=== PATIENT | female | born 1960 | race Caucasian/White ===

== ENCOUNTER 2016-10-03 00:41 | Emergency (ER) | payer MEDICARE, MEDICAID ==
--- NOTE | 2016-10-03 19:08 | ER ---
ADMIT: 10/03/2016 RM/LOC: ER [facility] MR#: [id number] [address] [facility] [address] [place], [place] [address] LORI CRUZ [address] [facility] [address] [place] [address] Emergency Room Report SEX: F AGE: 56 : 1960 DATE: 10/03/2016 SUBJECTIVE: The patient is a 56-year-old female with a past medical history of bipolar, COPD, anxiety, came to the ER with chief complaint of left hip pain for the last 2 months. The patient states over the last two months, she fell twice and she had chronic left hip pain for which she had been refilled multiple times pain medications, and she states it was ground level fall and she says for the last two months, she has been limping on the left lower extremity. The patient states that the pain is still as before, but she did not take any pain medications, that is the reason she came to the ER. The patient denies any new weakness or numbness. The patient denies any new trauma. PHYSICAL EXAMINATION: GENERAL: The patient was in pczf-vd-benjzhne distress, the patient was afebrile with normal vitals. HEAD AND NECK: Noncontributory. CHEST: Clear, normal heart sounds. ABDOMEN: Soft. NEURO: Normal neuro and sensory motor exam. The patient's left hip range of motion actively was moderately distressed because of the pain. Still the patient could do the flexion and inversion/eversion of the left hip. CT scan of the pelvic left hip showed left acetabular fracture, with possible multiple floating particles in the left hip joint. The pain was moderately controlled. The patient was discharged to home. Matthew Acosta's , and advised to follow up this morning with the orthopedic clinic, the patient agreed to follow up with the orthopedic clinic today. The patient was advised to use the cane or per her discretion, crutches. Jan Herring MD/ douglas JOB #: [id number] CC: Jan Herring MD, Attending Physician Stone Martínez MD, Family Physician
[2016-11-28] MEDS ORDERED: ATIVAN-DPS1 MG PO (10:27)
[2016-11-28] MEDS ORDERED: LAMICTAL200 MG PO (10:27)
[2016-11-28] MEDS ORDERED: TOPROL XL50 MG PO (10:28)
[2016-11-28] MEDS ORDERED: ASA325 MG PO (10:28)
[2016-11-28] MEDS ORDERED: PROTONIX40 MG PO (10:28)
[2016-11-28] MEDS ORDERED: LEXAPRO DPS20 MG PO (10:29)
[2016-11-28] MEDS ORDERED: COLACE-DPS100 MG PO (10:29)
[2016-11-28] MEDS ORDERED: FEOSOL-DPS325 MG PO (10:29)
[2016-11-28] MEDS ORDERED: MIRALAX PACKET17 GM PO (10:29)
[2016-11-28] MEDS ORDERED: MOBIC15 MG PO (10:29)
[2016-11-28] MEDS ORDERED: DESYREL-DPS50 MG PO (10:29)
[2016-11-28] MEDS ORDERED: ULTRAM DPS50 MG PO (10:30)
[2016-11-28] MEDS ORDERED: SENOKOT S1 TAB PO (10:30)
[2016-11-28] MEDS ORDERED: OXY IR DPS5 MG PO (10:31)
[2016-11-28] MEDS ORDERED: DUONEB DPS3 ML IH (10:31)
[2016-11-28] MEDS ORDERED: TYLENOL DPS325 MG PO (10:32)
== END 2016-10-03 02:40 | disposition home or self-care (01) ==
LOC: ER 00:41
DX: S32.402A Unspecified fracture of left acetabulum, initial encounter for closed fracture (principal); F31.9 Bipolar disorder, unspecified; F17.210 Nicotine dependence, cigarettes, uncomplicated; Z88.2 Allergy status to sulfonamides; Z79.899 Other long term (current) drug therapy; W19.XXXA Unspecified fall, initial encounter

== ENCOUNTER → 2016-11-07 | Outpatient (CLI) | payer MEDICARE, MEDICAID ==
[~2016-11-07] MED LIST: ASA325 MG PO; ATIVAN-DPS1 MG PO; COLACE-DPS100 MG PO; DESYREL-DPS50 MG PO; DUONEB DPS3 ML IH; FEOSOL-DPS325 MG PO; LAMICTAL200 MG PO; LEXAPRO DPS20 MG PO; MIRALAX PACKET17 GM PO; MOBIC15 MG PO; OXY IR DPS5 MG PO; PROTONIX40 MG PO; SENOKOT S1 TAB PO; TOPROL XL50 MG PO; TYLENOL DPS325 MG PO; ULTRAM DPS50 MG PO
== END | disposition home or self-care (01) ==
LOC: RAD.S 13:55
DX: M25.552 Pain in left hip (principal); M84.452D Pathological fracture, left femur, subsequent encounter for fracture with routine healing; M84.459D Pathological fracture, hip, unspecified, subsequent encounter for fracture with routine healing; M25.452 Effusion, left hip

== ENCOUNTER 2016-11-25 06:51 | Inpatient (IN) | payer MEDICARE, MEDICAID ==
[~2016-11-25] VITALS: Ht 160 cm; Wt 87.1 kg
--- NOTE | ~2016-11-25 | HP ---
ADMIT: 11/25/2016 RM/LOC: [facility] MR#: [id number] [id number] [place], [place] [address] LORI CRUZ [address] [place] [address] Pre-OP History and Physical SEX: F AGE: 56 : 1960 DATE OF SERVICE: CHIEF COMPLAINT: Left hip pain. HISTORY OF PRESENT ILLNESS: The patient is a 56-year-old female. She has had a long-standing history of left hip pain. She has had increased left hip discomfort. She ended up going to the emergency room. Eventually, an MRI showed left hip avascular necrosis and she now has some femoral head collapse. She is now being admitted for left total hip arthroplasty secondary to left hip avascular necrosis. PAST MEDICAL HISTORY: Past medical problems include fibromyalgia, anxiety, and depression. PAST SURGICAL HISTORY: Include hysterectomy and varicose vein stripping. MEDICATIONS: Include lovastatin. ALLERGIES: SULFA. SOCIAL HISTORY: Denies any significant tobacco or alcohol use. REVIEW OF SYSTEMS: Negative. PHYSICAL EXAMINATION: Fairly healthy-appearing female, walks with an antalgic gait and left lower extremity pain with any motion of the left hip. Leg lengths are equal. Leg is neurovascularly intact. DIAGNOSTIC DATA: X-rays AP, lateral, does show a subchondral fracture of the femoral head consistent with avascular necrosis. IMPRESSION: Left hip avascular necrosis with femoral head collapse. PLAN: Talked about different options. She has failed conservative care. Plan on doing left anterior total hip arthroplasty. She is aware of the risks, benefits, and options and agreed to proceed. Myles Claire MD/ douglas JOB #: [id number] CC: Myles Claire, Attending Physician UNKNOWN, Family Physician
[2016-11-28] MEDS ORDERED: ATIVAN-DPS1 MG PO (10:27)
[2016-11-28] MEDS ORDERED: LAMICTAL200 MG PO (10:27)
[2016-11-28] MEDS ORDERED: ASA325 MG PO (10:28)
[2016-11-28] MEDS ORDERED: TOPROL XL50 MG PO (10:28)
[2016-11-28] MEDS ORDERED: PROTONIX40 MG PO (10:28)
[2016-11-28] MEDS ORDERED: FEOSOL-DPS325 MG PO (10:29)
[2016-11-28] MEDS ORDERED: MOBIC15 MG PO (10:29)
[2016-11-28] MEDS ORDERED: COLACE-DPS100 MG PO (10:29)
[2016-11-28] MEDS ORDERED: MIRALAX PACKET17 GM PO (10:29)
[2016-11-28] MEDS ORDERED: DESYREL-DPS50 MG PO (10:29)
[2016-11-28] MEDS ORDERED: LEXAPRO DPS20 MG PO (10:29)
[2016-11-28] MEDS ORDERED: SENOKOT S1 TAB PO (10:30)
[2016-11-28] MEDS ORDERED: ULTRAM DPS50 MG PO (10:30)
[2016-11-28] MEDS ORDERED: OXY IR DPS5 MG PO (10:31)
[2016-11-28] MEDS ORDERED: DUONEB DPS3 ML IH (10:31)
[2016-11-28] MEDS ORDERED: TYLENOL DPS325 MG PO (10:32)
--- NOTE | 2016-12-01 15:28 | CO ---
ADMIT: 11/25/2016 RM/LOC: [facility] MR#: [id number] [address] [address] LORI CRUZ [address] [place] [address] Consultation Report SEX: F AGE: 56 : 1960 DATE OF CONSULTATION: 11/18/2016 ATTENDING PHYSICIAN: Myles Claire CONSULTING PHYSICIAN: Trenton Chance MD CHIEF COMPLAINT: Left hip pain. HISTORY OF PRESENT ILLNESS: Lori is a 56-year-old white female, who has recently been followed in the [facility] from [place]. She was admitted on [facility] with a fractured hip with acetabular fracture that was managed conservatively dating back to October 04, 2016. On followup, she had progressive increasing pain and ultimately, had an MRI obtained of the hip on November 07, 2016, which showed avascular necrosis. Follow up with Dr. Claire was arranged and arrangements for a left total hip on November 25, 2016, were made. The patient at this time states she can hardly walk on it due to the pain and she is actually in a wheelchair for evaluation today. PAST MEDICAL HISTORY: Prior surgeries include a hysterectomy, bilateral vein stripping, right partial shoulder and rotator cuff repair along with prior colonoscopies. Illnesses include; hyperlipidemia, COPD with continued tobacco use disorder, fibromyalgia, and chronic depression and anxiety. MEDICATIONS: On admission include: 1. Fetzima 80 mg daily. 2. Lexapro 20 mg daily. 3. Toprol-XL 50 mg daily, started today, elevated pressures. 4. Lovastatin 20 mg daily. 5. Mobic 7.5 mg b.i.d. currently on hold. 6. Trazodone 50 mg at bedtime. 7. Meclizine 25 mg q.i.d. p.r.n. dizziness. 8. Protonix 40 mg daily. 9. Lamictal 100 mg at bedtime. 10.Lorazepam 1 mg t.i.d. 11.Ventolin two puffs q.i.d. p.r.n. ALLERGIES: TO SULFAMETHOXAZOLE. REVIEW OF SYSTEMS: Remarkable for left hip pain and some problems with ongoing anxiety, depression, and COPD. Remainder review of systems negative. PHYSICAL EXAMINATION: VITAL SIGNS: Include current blood pressure 160/100, temperature 97.1, pulse of 93, height is 64 inches, weight of 191 pounds, with a saturations of 97%. GENERAL: Exam shows to be an alert, anxious 56-year-old female, states she is stressed over upcoming surgery but is tired of the pain. She cannot walk or stand or care for herself. Exam shows her to be alert. ADMIT: 11/25/2016 RM/LOC: [facility] MR#: [id number] [address] [place] [id number] [place] [address] Consultation Report SEX: F AGE: 56 : 1960 HEENT: Pupils reactive. TMs normal. Throat unremarkable. She has dentures. NECK: Without nodes or masses. HEART: Regular without murmur. LUNGS: Clear with diminished breath sounds. ABDOMEN: Soft and benign. EXTREMITIES: No clubbing cyanosis or edema. She has pain with range of motion of her left hip. NEURO: Reveals gross normal light touch strength DTRs. LABORATORY AND DIAGNOSTIC DATA: Chest x-ray is normal with an old partial right total shoulder. Labs include a UA, which was normal. EKG shows normal sinus rhythm normal EKG. BMP is normal. Blood sugar 121 is non fasting. White count is 6.4, hemoglobin 11.8, with a platelet count of 398,000. ASSESSMENT: 1. Avascular necrosis, left hip, status post left acetabular fracture. Other problems include: 1. Tobacco use disorder, currently one pack a day. 2. Bipolar disorder. 3. Chronic obstructive pulmonary disease. 4. Hyperlipidemia. 5. Benign essential hypertension, newly diagnosis with initiation of Toprol therapy and fibromyalgia. PLAN: New hypertensive therapy is initiated. We will hold pain medications, anti-inflammatories, and aspirin. She is okayed for operative intervention and anesthesia as indicated. She will be on aspirin postop per protocol. We will follow her postop and proceed with further evaluation and management based on course during hospitalization and admission. Trenton Chance MD/ douglas JOB #: [id number] CC: Myles Claire, Attending Physician UNKNOWN, Family Physician
--- NOTE | 2016-12-24 21:06 | OR ---
ADMIT: 11/25/2016 RM/LOC: 507 [facility] MR#: [id number] [address] [address] LORI CRUZ [address] [place] [address] Operative/Delivery Room Report SEX: F AGE: 56 : 1960 SURGERY DATE: 11/25/2016 SURGEON: Myles Claire MD PREOPERATIVE DIAGNOSIS: Left hip avascular necrosis. POSTOPERATIVE DIAGNOSIS: Left hip avascular necrosis. PROCEDURES: 1. Left anterior total hip arthroplasty. 2. Intra-articular block. ANESTHESIA: Spinal. COMPLICATIONS: None. ESTIMATED BLOOD LOSS: 100 mL. COMPONENTS: 1. 52-mm Gription [place] cup. 2. 36-mm neutral AltrX liner. 3. 12-mm standard offset Corail stem. 4. +5, 36 mm ceramic head. DESCRIPTION OF PROCEDURE: The patient was taken to the operating room. The correct hip was identified and marked in the preop holding area. The preoperative leg lengths were documented. The patient received a spinal anesthetic. At that point, the patient had traction boots applied. The patient was placed on the [place] operative table. A perfect fluoroscopic AP pelvis was obtained along with a perfect AP of the operative hip and printed for preoperative templating purposes. At that point, the left hip was prepped and draped in a standard fashion and an anterior approach was performed. An incision was made lateral and inferior to the anterior superior iliac spine extending distally. Dissection was carried through subcutaneous tissue down to the tensor fascia. The fibers of the tensor fascia were identified in oblique fashion. The tensor fascia was then opened up along its muscle fibers. An Allis clamp was placed on the anterior fascial border. The tensor muscle itself was then swept off with blunt dissection and retracted posteriorly. At that point, the rectus was elevated off the anterior hip capsule. The lateral circumflex vessels were identified and cauterized. A Cobra retractor was placed above the superior femoral neck to retract the tensor posteriorly. The rest of the rectus was elevated off the anterior hip capsule and a second retractor was placed around the medial femoral neck. An L-shaped capsulotomy was performed through the hip capsule down to the intertrochanteric line and extended along the intertrochanteric line to the level of the lesser trochanter. Tag stitches were placed in the medial and lateral border of the hip capsule. We also released the superior hip capsule out of the trochanteric shoulder region. At that point, we placed our Cobra retractors in an intra- articular fashion for improved exposure to complete our capsular releases ADMIT: 11/25/2016 RM/LOC: 507 [facility] MR#: [id number] [address] [address] [place] [address] Operative/Delivery Room Report SEX: F AGE: 56 : 1960 intra-articularly. A femoral neck cut was then made based on templating using the trochanteric shoulder as a bony landmark. We then externally rotated the hip 20 degrees for improved exposure and removed the femoral head from the acetabulum with no undue difficulty. Once the femoral head was removed, we again completed our capsular release around the inferior femoral neck to the level of lesser trochanter, released the superior capsule off the greater trochanteric shoulder in its entirety. We then placed slight traction on the femur in 20 degrees external rotation and placed a blunt-tip Cobra retractor over the anterior acetabular border. A second blunt Cobra was placed around the posterior acetabular border. All the remaining labrum was excised and an episiotomy performed to the inferior capsule to improve exposure. We cauterized the fovea and removed any remaining tissue in the depth of the acetabulum. We sequentially reamed the acetabulum under direct visualization up to a 51-mm size reamer. We elected to use a 52 size acetabular component. We put the acetabular component on a curved grinding machine operator automatic and placed it within the depths of the acetabulum. At that point we removed all retractors; brought in fluoroscopy; and again obtained a perfect AP of the pelvis followed by a perfect AP of the hip. Under fluoroscopic guidance, we impacted the acetabular component in approximately 45 degrees of inclination and 20 degrees of anteversion. We had an excellent press fit and no supplemental screws were required. Any peripheral osteophytes were circumferentially removed around the acetabular component. A hole eliminator was placed in the acetabular component and a neutral 36-mm AltrX liner was impacted within the acetabular component. A partial intra-articular block with Exparel was performed at this point in time. Once our acetabular preparation was completed, all the acetabular retractors were removed. We then exposed the femur by rotating it into neutral position and taking all traction off the femur. A femoral elevating hook was placed posterior to the trochanteric ridge. The foot was dropped down to 45 degrees and the leg maximally externally rotated no undue tension. We made sure our inferior capsular release was complete and placed a #1 retractor over the tip of the trochanter. Any remaining capsule was released off the tip of the trochanter and the piriformis tendon and a conjoined tendon were also released for exposure. At that point, you could feel the femur give, and we were able to elevate it up and out of the wound. The femur was externally rotated to approximately 120 degrees and the foot dropped to the floor as the leg was adducted. The trochanteric elevating hook was manually pulled in the anterior lateral direction as the elevating bar was raised to support it. At that point, we had excellent femoral exposure. A Christopher retractor was placed over the tip of the trochanter and a femoral neck retractor around the medial calcar region to improve exposure. The proximal femur was opened with a box osteotome and a canal finder was used to identify the femoral canal. The proximal femur was sequentially broached up to a 12 mm Corail broach. We did overream the distal canal to be sure we did not have a distal femoral fit. At that point, we left the broach in the canal and calcar planed the neck. We then reduced the hip with a standard off-set femoral neck and a +5 x 36-mm head. All the retractors and femoral hook were removed. Using manual traction, we were able to reduce the hip into the acetabulum with no undue difficulty. A perfect fluoroscopic AP of the pelvis followed by a perfect AP of the hip was ADMIT: 11/25/2016 RM/LOC: 507 [facility] MR#: [id number] [address] [address] [place] [address] Operative/Delivery Room Report SEX: F AGE: 56 : 1960 obtained and appropriate leg length and offset were confirmed. We replaced our femoral elevating hook posterior to the trochanter. A bone hook and manual traction were used to dislocate the hip, again externally rotating the femur in its entirety as the foot was dropped to the floor and leg adducted. We removed the trial components, replaced a [place] retractor, and a femoral neck retractor. The broach was removed and the appropriate real components opened. We then impacted a size 12-mm standard offset Corail stem down the femoral canal with excellent press-fit. We impacted a +5 x 36 mm ceramic head on the trunnion. All retractors were removed, using manual traction the hip was reduced, and again was found to be stable. A final fluoroscopic AP pelvis and AP hip was obtained to confirm appropriate leg length, offset, and component positioning. We then irrigated out the wounds thoroughly and repaired the anterior capsular structures with #5 Ti-Cron. Our intra-articular Exparel block was completed including all soft tissues. The tensor fascia was repaired with a running and interrupted 0 Vicryl suture. We closed subQ with 2-0 Vicryl and ran a subcuticular Monocryl stitch. A Prineo hip wound dressing was applied and sterile dressings applied. The patient was taken off the [facility] table, transferred to a standard OR bed, and taken to the recovery room in stable condition with no complications. Myles Claire MD/ douglas JOB #: [id number] CC: Myles Claire, Attending Physician Trenton Chance, Family Physician
--- NOTE | 2016-12-24 21:06 | DS ---
ADMIT: 11/25/2016 RM/LOC: 507 [facility] MR#: [id number] [address] [address] LORI CRUZ [address] [place] [address] General Discharge Summary SEX: F AGE: 56 : 1960 ADMISSION DATE: 11/25/2016 DISCHARGE DATE: 11/27/2016 REASON FOR ADMISSION: Elective left total hip arthroplasty for avascular necrosis. PREOPERATIVE DIAGNOSIS: Left hip avascular necrosis. POSTOPERATIVE DIAGNOSIS: Left hip avascular necrosis. PROCEDURE PERFORMED: Left anterior total hip arthroplasty. ANESTHETIC: Spinal. COMPLICATIONS: None. ESTIMATED BLOOD LOSS: 100 mL. [employer] PARALEGAL: Rome Beavers PA-C ACTIVE MEDICAL PROBLEMS: Avascular necrosis of the hip, tobacco use disorder, currently one pack a day. Bipolar disorder, chronic obstructive pulmonary disease, hyperlipidemia, benign essential hypertension. HOSPITAL COURSE: Lori was admitted on 11/25/2016 for a left total hip arthroplasty, was completed successfully by an anterior approach by Dr. Claire. There were no complications. Postoperatively, her pain was much improved due to her existing AVN. She did very well with physical therapy, becoming proficient in her home exercise program. She did as anticipated experienced mild acute surgical blood-loss anemia, hemoglobin dropped to 9.8, but remained hemodynamically stable, did not require transfusion. By postop day 2, pain was under control. She was proficient with her home exercise and she is ready for discharge with plans for home exercise program. DISCHARGE MEDICATIONS: 1. Lamictal 100 mg daily. 2. Ativan 1 mg t.i.d. 3. Metoprolol 50 mg daily. 4. Aspirin 325 mg daily. 5. Protonix 40 mg daily. 6. Trazodone 50 mg daily. 7. Meloxicam 15 mg daily. 8. Lexapro 20 mg daily. 9. Colace 100 mg b.i.d. ADMIT: 11/25/2016 RM/LOC: 507 [facility] MR#: [id number] [address] [facility] [address] [place] [address] LORI CRUZ [address] [place] [address] General Discharge Summary SEX: F AGE: 56 : 1960 10.Feosol 325 mg daily. 11.MiraLAX daily p.r.n. 12.Senokot b.i.d. p.r.n. 13.Ultram 50 mg one to two q.6 hours x3 days then p.r.n. 14.DuoNebs 4 times daily. 15.Oxy-IR 5 mg one to two q.4 p.r.n. 16.Tylenol 650 mg q.4 p.r.n. DISCHARGE INSTRUCTIONS: Lori will undergo home exercise program per total hip anterior approach protocol. She will follow in the orthopedic office in 2 weeks with wound check, 6 weeks with x-rays. Follow up with primary care as directed. Rome Beavers PA-C / Myles Claire MD / douglas JOB #: [id number] CC: Myles Claire MD, Attending Physician Trenton Chance MD, Family Physician
== END 2016-11-27 12:36 | disposition home health service (06) | DRG 470 ==
LOC: WOR 06:51 → 5MS 06:51
PROVIDERS: ADMIT Orthopaedic Surgery
PROC: 0SRB04A Replacement of Left Hip Joint with Ceramic on Polyethylene Synthetic Substitute, Uncemented, Open Approach (ICD-10-PCS; principal; 2016-11-25)
DX: M87.052 Idiopathic aseptic necrosis of left femur (principal); I10 Essential (primary) hypertension; D62 Acute posthemorrhagic anemia; M79.7 Fibromyalgia; F41.9 Anxiety disorder, unspecified; E78.5 Hyperlipidemia, unspecified; J44.9 Chronic obstructive pulmonary disease, unspecified; F17.210 Nicotine dependence, cigarettes, uncomplicated; F31.9 Bipolar disorder, unspecified

== ENCOUNTER → 2016-11-30 | Outpatient (CLI) | payer MEDICARE, MEDICAID | END | disposition home or self-care (01) | LOC: PTH.S 11:51 | DX: M79.89 Other specified soft tissue disorders (principal); Z96.642 Presence of left artificial hip joint ==

== ENCOUNTER 2016-12-09 09:15 | Emergency (ER) | payer MEDICARE, MEDICAID ==
--- NOTE | 2016-12-27 15:00 | ER ---
ADMIT: 12/09/2016 RM/LOC: ER [facility] MR#: [id number] [address] [address] LORI CRUZ [address] [place] [address] Emergency Room Report SEX: F AGE: 56 : 1960 DATE: 12/09/2016 ADDENDUM: A 56-year-old female coming in with kind of dizziness. Evidently, her doctor has taken her off meclizine. She was upset about that because she said that it had worked quite well for her. We did give her one here that seemed to help. She has an appointment with Dr. Chance at 1100 hours which she should keep. I said he is the one who is going to help her adjust medications which she already did, and she thinks she needs some different stuff so at this time I have conceded that all to him and reiterated that she needs to make the appointment. CONDITION ON DISCHARGE: Good. Edgard Peralta MD/ douglas JOB #: [id number] CC: Edgard Peralta MD, Attending Physician Trenton Chance MD, Family Physician
== END 2016-12-09 10:10 | disposition home or self-care (01) ==
LOC: ER 09:15
DX: R42 Dizziness and giddiness (principal); F17.210 Nicotine dependence, cigarettes, uncomplicated; I10 Essential (primary) hypertension; J44.9 Chronic obstructive pulmonary disease, unspecified; Z88.2 Allergy status to sulfonamides; Z79.899 Other long term (current) drug therapy; Z79.82 Long term (current) use of aspirin